=== PATIENT | female | born 1995 | race Caucasian/White ===

== ENCOUNTER 2024-10-05 17:41 | Emergency (ER) | payer MEDICAID ==
[~2024-10-05] VITALS: Ht 152.4 cm; Wt 72.6 kg
[2024-10-05 18:43] LABS: PREGNANCY TEST URINE QUAL NEGATIVE (NEGATIVE)
[2024-10-05 22:22] VITALS: BP 111/66; TEMP 98.3; O2SAT 97
== END 2024-10-05 22:22 | disposition home or self-care (01) ==
LOC: ER 17:51
DX: S02.2XXA Fracture of nasal bones, initial encounter for closed fracture (principal); Y04.0XXA Assault by unarmed brawl or fight, initial encounter; Y93.89 Activity, other specified; Y92.89 Other specified places as the place of occurrence of the external cause; Y99.8 Other external cause status
CPT/HCPCS: 70486-TC; 84703-TC